=== PATIENT | male | born 1975 | race Hispanic/Latino ===

== ENCOUNTER 2017-07-19 19:55 | Emergency (ER) | payer BC ==
[2017-07-19 20:02] VITALS: BP 119/79; PULSE 94; RESP 16; TEMP 98.7; O2SAT 97
--- NOTE | 2017-07-19 20:34 | ED PDOC ---
Arrival/HPI - General Chief Complaint: Eye Problem Time Seen by Provider: 07/19/17 20:30 Historian: Patient - History of Present Illness Narrative History of Present Illness (Text): 07/19/17 20:30 This 41 yo male who denies pmh, presents to this ED c/o right eye irritation, and FB sensation since last night. Patient stated earlier yesterday, he was drilling concrete, but he was wearing eye protector. Patient denies eye trauma , photophobia, eye contact use, vision changes, or eye pain. Time/Duration: Other (see hpi) Context: Home Past Medical History - Provider Review Nursing Documentation Reviewed: Yes - Cardiac Hx Cardiac Disorders: No - Pulmonary Hx Respiratory Disorders: No - Neurological Hx Neurological Disorder: No - HEENT Hx HEENT Disorder: No - Renal Hx Renal Disorder: No - Endocrine/Metabolic Hx Endocrine Disorders: No - Hematological/Oncological Hx Blood Disorders: No - Integumentary Hx Dermatological Disorder: No - Musculoskeletal/Rheumatological Hx Musculoskeletal Disorders: No - Gastrointestinal Hx Gastrointestinal Disorders: No - Genitourinary/Gynecological Hx Genitourinary Disorders: No - Psychiatric Hx Psychophysiologic Disorder: No Hx Substance Use: No Family/Social History - Physician Review Nursing Documentation Reviewed: Yes Family/Social History: Other (noncontributory) Smoking Status: Heavy Smoker > 10 Cigarettes Daily Hx Alcohol Use: No Hx Substance Use: No Allergies/Home Meds Allergies/Adverse Reactions: Allergies No Known Allergies Allergy (Verified 07/19/17 19:57) Home Medications: Home Meds Medication Instructions Recorded Confirmed Dextroamphetamine/Amphetamine 30 mg PO DAILY 07/19/17 07/19/17 [Adderall Xr 30 mg Capsule] buPROPion SR [Wellbutrin] 100 mg PO DAILY 07/19/17 07/19/17 Review of Systems - Review of Systems Constitutional: Normal. absent: Fatigue, Weight Change, Fevers Eyes: Other (see hpi). absent: Vision Changes, Photophobia, Eye Pain ENT: Normal Respiratory: Normal. absent: SOB, Cough Cardiovascular: Normal. absent: Chest Pain, Palpitations Gastrointestinal: Normal. absent: Abdominal Pain, Nausea, Vomiting Genitourinary Male: Normal. absent: Dysuria, Frequency, Hematuria, Urinary Output Changes Musculoskeletal: Normal Skin: Normal Neurological: Normal Endocrine: Normal Hemo/Lymphatic: Normal Psychiatric: Normal Physical Exam Vital Signs Temp Pulse Resp BP Pulse Ox 07/19/17 19:58 98.7 F 94 H 16 119/79 97 Temperature: Afebrile Blood Pressure: Normal Pulse: Regular Respiratory Rate: Normal Appearance: Positive for: Well-Appearing, Non-Toxic, Comfortable Pain Distress: None Mental Status: Positive for: Alert and Oriented X 3 - Systems Exam Head: Present: Atraumatic, Normocephalic, Other (No stye. No FB) Pupils: Present: PERRL, Other (fluorescine stain was negative. No corneal abrasion. No corneal FB. No corneal ulcer. No dendritic lesion on cornea) Extroacular Muscles: Present: EOMI. No: Entrapment Conjunctiva: Present: Injected (left conjuctiva is injected with mild discharge) Mouth: Present: Moist Mucous Membranes Neck: Present: Normal Range of Motion Respiratory/Chest: Present: Clear to Auscultation, Good Air Exchange. No: Respiratory Distress, Accessory Muscle Use Cardiovascular: Present: Regular Rate and Rhythm, Normal S1, S2. No: Murmurs Abdomen: No: Tenderness, Distention, Peritoneal Signs Back: Present: Normal Inspection Upper Extremity: Present: Normal Inspection. No: Cyanosis, Edema Lower Extremity: Present: Normal Inspection. No: Edema Neurological: Present: GCS=15, CN II-XII Intact, Speech Normal, Motor Func Grossly Intact, Normal Sensory Function, Normal Cerebellar Funct, Gait Normal Skin: Present: Warm, Dry, Normal Color. No: Rashes Psychiatric: Present: Alert, Oriented x 3, Normal Insight, Normal Concentration Medical Decision Making ED Course and Treatment: 07/19/17 20:51 Re-evaluation. Patient feels better. Discussed results and plan with patient who expresses understanding. All questions answered and there is agreement with the plan to discharge home with instructions. Patient stable for discharge. Return if symptoms persist or worsen. Patient was recommended to f/u pmd in 1-2 days. return if symptoms worsen. Re-evaluation Time: 20:52 Reassessment Condition: Re-examined, Improved - Medication Orders Current Medication Orders: Discontinued Medications Tobramycin Sulfate (Tobrex 0.3% Ophth Soln) 1 drop OD STAT STA Stop: 07/19/17 20:51 Disposition/Present on Arrival - Present on Arrival Any Indicators Present on Arrival: No History of DVT/PE: No History of Uncontrolled Diabetes: No Urinary Catheter: No History of Decub. Ulcer: No History Surgical Site Infection Following: None - Disposition Have Diagnosis and Disposition been Completed?: Yes Diagnosis: Conjunctivitis Disposition: HOME/ ROUTINE Disposition Time: 20:52 Patient Plan: Discharge Condition: IMPROVED Discharge Instructions (ExitCare): Conjunctivitis ([place]) Additional Instructions: Call private doctor for follow up visit in 1-2 days. Apply one drop on affected eye every 2 hours for 2 days, then apply one drop on affected every 4 hours x 5 more days. Return to emergency if symptoms worsen. Prescriptions: Tobramycin 0.3% [Tobrex 0.3% Ophth Soln] 1 drop OD Q4H #1 bottle Referrals: PCP,NO [Primary Care Provider] - Follow up with primary Padilla Barber DO [Staff Provider] - Follow up with primary Forms: [facility] (Russian), WORK NOTE
[2017-07-19] MEDS ORDERED: Tobramycin 0.3% OPHT SOLN OD STA (20:50)
== END 2017-07-19 21:10 | disposition home or self-care (01) ==
LOC: ED 19:55
DX: H10.9 Unspecified conjunctivitis (principal)